=== PATIENT | female | born 1990 | race Caucasian/White ===

== ENCOUNTER 2017-09-11 13:06 | Day surgery (SDC) | payer BC ==
[~2017-09-11 13:06] MED LIST: CEFAZOLIN 1 GM INJ; CEFAZOLIN 1 GM/50 ML (PMX) 50 ML IVPB; SOD CHLORIDE 0.9% 1,000 ML IV
[2017-09-11] MEDS ORDERED: ONDANSETRON 4 MG INJ (16:10)
[2017-09-11] MEDS ORDERED: METOCLOPRAMIDE 10 MG INJ (16:10)
[2017-09-11] MEDS ORDERED: MIDAZOLAM 1 MG/ML 2 ML INJ (16:10)
[2017-09-11] MEDS ORDERED: ROPIVACAINE 0.5 % 30 ML VIAL (16:11)
[2017-09-11] MEDS ORDERED: PROPOFOL 20 ML (16:15)
[2017-09-11] MEDS ORDERED: ROCURONIUM 50 MG INJ (16:15)
[2017-09-11] MEDS ORDERED: KETOROLAC 30 MG INJ (16:15)
[2017-09-11] MEDS ORDERED: NEOSTIGMINE 3 MG/3 ML SYRINGE ×2 (16:15→16:16)
[2017-09-11] MEDS: BUPIVACAINE 0.25% (MPF) 30 ML INJ (16:54)
[2017-09-11] MEDS ORDERED: DIPHENHYDRAMINE 50 MG INJ IV (17:00)
[2017-09-11] MEDS ORDERED: OXYCODONE/ACETAMINOPHEN (5/325) TAB PO (17:00)
[2017-09-11] MEDS ORDERED: MEPERIDINE 25 MG INJ IV (17:00)
[2017-09-11] MEDS ORDERED: HYDROmorphONE (0.2 MG/ML) 10ML SYG IV (17:00)
[2017-09-11] MEDS: ONDANSETRON 4 MG INJ IV (17:29)
[2017-09-11] MEDS: HYDROmorphONE (0.2 MG/ML) 10ML SYG IV ×3 (17:29→17:45)
[2017-09-11] MEDS: HYDROCODONE/APAP (5/325) TAB PO (17:58)
[2017-09-11] MEDS: OXYCODONE/ACETAMINOPHEN (5/325) TAB PO (18:30)
== END 2017-09-11 19:23 | disposition home or self-care (01) ==
LOC: SDS 13:06
DX: K80.10 Calculus of gallbladder with chronic cholecystitis without obstruction (principal)
CPT/HCPCS: 47562; 84703; 88304

== ENCOUNTER 2018-01-02 10:04 | Emergency (ER) | payer BC | END 2018-01-02 11:50 | disposition home or self-care (01) | LOC: FTE 10:04 | DX: R07.89 Other chest pain (principal); M54.2 Cervicalgia | CPT/HCPCS: 71045; 72040; 99284-25 ==